=== PATIENT | female | born 1985 | race Hispanic/Latino ===

== ENCOUNTER 2019-08-05 11:26 | Emergency (ER) | payer MEDICAID ==
[2019-08-05 11:55] LABS: BASOPHILS % (AUTO) 0.6 % (0.0-5.0); EOSINOPHILS % (AUTO) 0.7 % (0.0-8.0); HEMATOCRIT 26.1 % (36-48); LYMPHOCYTES % (AUTO) 8.7 % (21.0-51.0); MEAN CORPUSCULAR HEMOGLOBIN 20.3 pg (27.0-33.0); MEAN CORPUSCULAR HGB CONC 31.8 g/dL (32.0-36.0); MEAN CORPUSCULAR VOLUME 63.9 fL (79-99); MONOCYTES % (AUTO) 4.7 % (3.0-13.0); NEUTROPHILS % (AUTO) 85.3 % (40.0-77.0); PLATELET COUNT (AUTO) 192 K/uL (130-400); RED BLOOD CELL COUNT(AUTO) 4.08 MIL/uL (4.00-5.50); RED CELL DISTRIBUTION WIDTH 19.5 % (11.0-15.5); WHITE BLOOD COUNT (AUTO) 8.4 K/uL (4.8-10.8)
[2019-08-05 11:56] LABS: BILIRUBIN,URINE Negative (NEGATIVE); COLOR,URINE Yellow (YELLOW); GLUCOSE, URINE (UA) Negative (NEGATIVE); KETONES,URINE Negative (NEGATIVE); LEUKOCYTE ESTERASE ,URINE Moderate (NEGATIVE); NITRATE,URINE Negative (NEGATIVE); OCCULT BLOOD,URINE Negative (NEGATIVE); PROTEIN,URINE Trace mg/dL (NEGATIVE)
[2019-08-05 11:59] LABS: CARBON DIOXIDE 23 mmol/L (21-32); CHLORIDE 103 mmol/L (101-111); CREATININE 0.7 mg/dL (0.5-1.5); GLOMERULAR FILTR. RATE CALC 101 mL/min (>60); GLUCOSE,RANDOM 96 mg/dL (70-105); POTASSIUM 3.8 mmol/L (3.5-5.1); SODIUM SERUM 137 mmol/L (136-145); UREA NITROGEN, BLOOD 10 mg/dL (7-18)
[2019-08-05 11:59] LABS: HCG,QUAL RESULT POSITIVE (NEGATIVE)
[2019-08-05 12:00] LABS: APPEARANCE,URINE SLIGHTLY CLOUDY (CLEAR)
[2019-08-05 12:04] LABS: ASPARTATE AMINOTRANSFERASE 16 U/L (10-37); BILIRUBIN,TOTAL 0.2 mg/dL (0.2-1.0); TOTAL PROTEIN, SERUM 7.1 g/dL (6.0-8.3)
[2019-08-05 12:07] LABS: ALANINE AMINOTRANSFERASE < 6 U/L (12-78)
[2019-08-05 12:12] LABS: BACTERIA,URINE Moderate /HPF (None Seen); RBC,URINE 0-1 /HPF (0-1)
[2019-08-05 12:13] LABS: MUCUS,URINE Many LPF (None Seen); SQUAMOUS EPITHELIAL CELL,UR 30-50 /HPF (0-2)
[2019-08-05 12:14] LABS: INR 0.94 (0.85-1.15); PARTIAL THROMBOPLASTIN TIME 26.3 SEC (26.3-35.5); PROTHROMBIN TIME 9.9 SEC (9.6-11.6)
[2019-08-05 12:35] LABS: CREATINE KINASE, TOTAL 44 U/L (21-232); HCG,QUANTITATIVE 94819 mIU/mL (0-5)
== END 2019-08-05 13:16 | disposition home or self-care (01) ==
LOC: EDH 11:26
DX: O23.41 Unspecified infection of urinary tract in pregnancy, first trimester (principal); O99.011 Anemia complicating pregnancy, first trimester; Z87.891 Personal history of nicotine dependence; Z3A.11 11 weeks gestation of pregnancy
CPT/HCPCS: 36415; 76801; 80053; 81001; 81025; 82550; 83880; 84484; 84702; 85025; 85610; 85730; 93005

== ENCOUNTER 2024-10-25 07:10 | Emergency (ER) | payer BC, MEDICAID ==
[~2024-10-25] VITALS: Ht 162.6 cm; Wt 90.7 kg
--- NOTE | 2024-10-25 07:32 | ERN ---
ED Note History of Present Illness Stated Complaint: DIZZINESS Chief Complaint: Dizzy/Light Headed Time Seen by MD: 07:23 Dictation: This 39-year-old female presents in the emergency department after having a near syncopal episode associated with a sharp left-sided thoracic pain exacerbated by deep breath that began suddenly shortly prior to arrival. The pain is still there but better now. Onset was accompanied by lightheadedness and sweating which have improved. The patient has never had anything like this before. She felt a little short of breath. She has not had recent fever, cough or congestion, ENT symptoms, gastroesophageal reflux, swelling of the legs or leg pain, nausea, vomiting or diarrhea. She did not take treatment at home. The patient has no underlying medical illnesses. She had her last menstrual period September 28 and is status post three miscarriages and a tubal ligation. She is a former smoker. She does not drink alcohol or use recreational drugs. She lives at home with family. She has no recent travel history and no history immobility or use of hormone therapy. Allergies: Coded Allergies: No Known Allergies (Unverified Allergy, Unknown, 08/05/19) Past Medical History Past Medical History: No Pertinent History Surgical History: BTL Social History: Negative RN Note Reviewed/Agreed w/PFSH: Yes Review of System Dictation All pertinent systems reviewed, negative except as documented in the HPI The ROS is obtained from patient GENERAL/CONSTITUTIONAL: Negative except as documented in HPI. ENT: Negative except as documented in HPI. CARDIOVASCULAR: Negative except as documented in HPI. RESPIRATORY: Negative except as documented in HPI. GASTROINTESTINAL: Negative except as documented in HPI. GENITOURINARY: Negative except as documented in HPI. MUSCULOSKELETAL: Negative except as documented in HPI. SKIN: Negative except as documented in HPI. NEUROLOGIC: Negative except as documented in HPI. Initial Vital Sign VS Vital Signs Date Time Temp Pulse Resp B/P (MAP) Pulse Ox O2 Delivery O2 Flow Rate FiO2 10/25/24 07:15 97.9 78 18 106/68 100 Room Air 0 10/25/24 07:34 21 Physical Exam Dictation VITAL SIGNS: note is made of triage vital signs. Patient has a normal blood pressure and no tachycardia CONSTITUTIONAL: This is a comfortable patient who is awake, alert, and appr opriately interactive. HEAD: Normocephalic, Atraumatic. EYES: Periorbital areas with no swelling, redness, or edema. Lids and lashes are normal. Conjunctival injection is absent. Sclera anicteric. Pupils equal, round, reactive to light. ENT: No nasal discharge noted. Posterior pharynx is without exudate, redness, swelling, masses, or evidence of obstruction. Uvula midline. Mucous membranes moist. NECK: Trachea midline, no masses palpated, and no cervical lymphadenopathy. No swelling. Supple, full range of motion without nuchal rigidity. No vertebral point tenderness. No meningismus. CHEST/AXILLA: Normal chest wall appearance and motion. No tenderness. No crepitus. CV: Normal rate, regular rhythm. No murmur. No edema. Bilateral carotid pulses are normal. Bilateral radial pulses are normal. Extremities are warm and well- perfused RESPIRATORY:Respiratory rate is normal. Bilateral equal breath sounds with good airflow. Normal breath sounds are noted. No rales, rhonchi or wheezes noted. No increased work of breathing, no retractions. ABDOMEN: Inspection normal. No distention is appreciated. Bowel sounds are normal. No mass or organomegaly is appreciated. There is no tenderness. No rebound. No rigidity. No voluntary or involuntary guarding. BACK: Inspection is normal. No midline tenderness is appreciated. The patient appears comfortable when moving. : No CVA tenderness or bladder tenderness. SKIN: Warm, dry, with normal turgor. Capillary refill less than 3 seconds. Normal color.No rash. No cellulitis or abscess. No evidence of acute injury. MS/Extremity: There is no calf tenderness. Baseline range of motion is noted in all 4 extremities. There are no deformities. NEURO: Awake and alert, lucid. Facies symmetric and speech is clear. Motor strength 5/5 in all extremities. Sensory grossly intact. PSYCH: Patient is appropriately attentive and cooperative without evidence of valdes llucination. Results (Laboratory/Radiology) Laboratory/Radiology Laboratory Tests Test 10/25/24 07:30 10/25/24 07:45 10/25/24 10:15 White Blood Count 4.6 K/uL (4.8-10.8) L Red Blood Count 4.83 MIL/uL (4.00-5.50) Hemoglobin 9.9 g/dL (12.0-16.0) L Hematocrit 32.9 % (36-48) L Mean Corpuscular Volume 68.1 fL (79-99) L Mean Corpuscular Hemoglobin 20.5 pg (27.0-33.0) L Mean Corpuscular Hemoglobin Concent 30.1 g/dL (32.0-36.0) L Red Cell Distribution Width 18.6 % (11.0-15.5) H Platelet Count 248 K/uL (130-400) Mean Platelet Volume fL (7.5-10.5) Immature Granulocyte % (Auto) 0.4 % (0-1) Neutrophils (%) (Auto) 70.0 % (40.0-77.0) Lymphocytes (%) (Auto) 22.4 % (21.0-51.0) Monocytes (%) (Auto) 6.1 % (3.0-13.0) Eosinophils (%) (Auto) 0.9 % (0.0-8.0) Basophils (%) (Auto) 0.2 % (0.0-5.0) Neutrophils # (Auto) 3.2 K/uL (1.8-7.7) Lymphocytes # (Auto) 1.0 K/uL (1.0-4.8) Monocytes # (Auto) 0.3 K/uL (0.1-1.0) Eosinophils # (Auto) 0.04 K/uL (0.00-0.70) Basophils # (Auto) 0.01 K/uL (0.00-0.20) Absolute Immature Granulocyte (auto 0.02 K/uL (0-1) Nucleated Red Blood Cells 0.0 % (0.0-0.19) Red Blood Cell Morphology See comments D-Dimer Quantitative (PE/DVT) 317 ng/mL (0-500) Sodium Level 143 mmol/L (136-145) Potassium Level 3.6 mmol/L (3.5-5.1) Chloride Level 108 mmol/L (101-111) Carbon Dioxide Level 27 mmol/L (21-32) Blood Urea Nitrogen 6 mg/dL (7-18) L Creatinine 0.8 mg/dL (0.5-1.0) Glomerular Filtration Rate Calc 95 mL/min (>90) Random Glucose 104 mg/dL (70-105) Total Calcium 8.8 mg/dL (8.5-10.1) Total Bilirubin 0.3 mg/dL (0.2-1.0) Aspartate Amino Transf (AST/SGOT) 23 U/L (10-37) Alanine Aminotransferase (ALT/SGPT) 14 U/L (12-78) Alkaline Phosphatase 77 U/L (50-136) Troponin I High Sensitivity < 4 ng/L (4-50) L Total Protein 7.5 g/dL (6.0-8.3) Albumin 3.4 g/dL (3.5-5.0) L Serum Test, Qualitative NEGATIVE (NEGATIVE) Influenza Type A Antigen Negative For Type A Influenza Type B Antigen Negative For Type B SARS-CoV-2 Antigen (Rapid) PRESUMPTIVE NEGATIVE Urine Color YELLOW (YELLOW) Urine Appearance CLOUDY (CLEAR) H Urine pH 7.0 (5.0-8.0) Urine Specific [place] 1.015 (1.001-1.031) Urine Protein 20 mg/dL (NEGATIVE) H Urine Glucose (UA) NEGATIVE mg/dL (NEGATIVE) Urine Ketones NEGATIVE mg/dL (NEGATIVE) Urine Occult Blood NEGATIVE (NEGATIVE) Urine Nitrate 1+ (NEGATIVE) H Urine Bilirubin NEGATIVE mg/dL (NEGATIVE) Urine Urobilinogen 0.2 mg/dL (0.2-1.0) Urine Leukocyte Esterase 250 Aaron/uL (NEGATIVE) H Urine RBC None /HPF (0-1) Urine WBC 6-10 /HPF (0-1) H Urine Squamous Epithelial Cells MOD /HPF (0-2) Urine Bacteria MANY /HPF (None Seen) Urine HCG, Qualitative NEGATIVE (NEGATIVE) Labs Reviewed?: Yes EKG Comment: Time reviewed: 8:45 a.m. EKG number; 1 Rate and rhythm: Normal sinus rhythm at 71 beats per minute [place]:normal Morphology:Normal MD interval: normal QT interval: normal ST/[place]aves: normal Impression: normal sinus rhythm without STEMI or ectopy Comparison EKG: none EKG INTERPRETATION by Dr. Lorenzo Bajwa X-RAY Comment: Institution : [facility] Accession No. : [id number] [place] : ALLAN MAGANA Creator : Dictator : [employer] Process Control Technician : Partner Manager : TAN SALGUERO Approver2 : Study : CHEST 2VWS Study Date : 10/25/2024 09:20:10 Report Date : [facility] [address] [place] [address] IMAGING REPORT Signed PATIENT: CHINO LEMUS MR#: [id number] : 1985 SEX: F AGE: 39 LOCATION: [facility] ORDER 8 STATUS: REG ER REPORT#: [id number] SERVICE 6 REASON: near syncope sharp L post cp ORDERING PHYSICIAN: LORENZO BAJWA MD PROCEDURE: CXR2VW - CHEST 2VWS Exam Type: CHEST 2VWS Clinical Information: near syncope sharp L post cp Comparison: None Findings: The lungs are clear of infiltrates. The heart is normal in size. The bony and soft tissue structures of the chest are unremarkable. Impression: Clear lungs. DICTATED BY: TAN SALGUERO MD DATE: 10/25/24930 ELECTRONICALLY SIGNED BY: TAN SALGUERO MD DATE: 10/25/24934 ED Course ED Course Orders Procedure Category Date Status Time Cbc With Differential LAB 10/25/24 Complete 07:45 Comprehensive LAB 10/25/24 Complete Metabolic Panel 07:45 Covid19 (Sars Antigen LAB 10/25/24 Complete Rapid) 07:45 Influenza Type A & B, LAB 10/25/24 Complete Rapid 07:45 Urinalysis Profile LAB 10/25/24 Complete 07:51 ,Urine Test LAB 10/25/24 Complete 07:51 D-Dimer LAB 10/25/24 Complete 08:17 Chest 2vws RAD 10/25/24 Resulted 08:17 12 Lead Ekg Tracing- EKG 10/25/24 Logged Technical 08:17 Troponin I High LAB 10/25/24 Complete Sensitivity 08:17 Hydrocodone/Apap PHA 10/25/24 Complete 5/325 (Tama 5/325mg) 09:00 Testing, LAB 10/25/24 Complete Serum Hcg 09:32 Culture Urine RADHA 10/25/24 In Process 10:30 Ketorolac PHA 10/25/24 Complete Tromethamine 30mg/Ml 11:00 Pantoprazole 40mg Inj PHA 10/25/24 Complete (Protonix 40mg Inj 11:00 Current Medications Medications (Trade) Dose Ordered Sig/Eduardo Route PRN Reason Start Time Stop Time Status Last Admin Dose Admin Acetaminophen/ Hydrocodone Bitart (NORco 5/325MG) 1 tab ONCE ONCE PO 10/25/24 09:00 10/25/24 09:01 DC 10/25/24 09:00 Ketorolac Tromethamine (toRADol) 30 mg ONCE ONCE IVP 10/25/24 11:00 10/25/24 11:01 DC Pantoprazole Sodium (PROTonix 40MG INJ) 40 mg ONCE ONCE IVP 10/25/24 11:00 10/25/24 11:01 DC Vital Signs Date Time Temp Pulse Resp B/P (MAP) Pulse Ox O2 Delivery O2 Flow Rate FiO2 10/25/24 10:11 98.1 80 16 100/62 100 Room Air* 0 10/25/24 07:34 98.6 100 16 120/72 98 Room Air* 0 10/25/24 07:15 97.9 78 18 106/68 100 Room Air 0 HEART Score Response (Comments) Value History: Low suspicion (0) 0 EKG: Normal 0 Age: < 45yrs (0) 0 Risk Factors: No known risk factors (0) 0 Initial Troponin: Normal limit (0) 0 HEART Score Risk: Low Risk for MACE (1-3) Total 0 Medical Decision Making MDM INITIAL IMPRESSION Initial history and physical concerning for pulmonary embolus, pneumothorax, gastroesophageal reflux, muscle spasm Patient is very low risk for aortic dissection and does not have risk factors for pulmonary embolus other than history of smoking. Very low risk for cardiac etiology. Exam and vital signs are normal Contributing medical problems: None I have reviewed the triage nursing notes and vital signs. The patient is afebrile with acceptable oxygen saturation, heart rate and blood pressure. Initial plan: Laboratory screening, including a D-dimer, PA and lateral chest x-ray DATA REVIEW I have reviewed additional NN, repeat VS, and monitoring where indicated. Heart rate, blood pressure, and O2 saturation are acceptable. White diagnostic results: White count is 4.6 with no left shift. Hemoglobin is 9 and platelets are normal. A comprehensive metabolic panel, troponin, beta hCG, D-dimer and swabs for flu and COVID are normal. PA and lateral chest x-ray was read by the radiologist as normal. I personally reviewed it for widened mediastinum or abnormal aortic silhouette or other acute finding to explain her symptoms. I concur with radiology reading Other independent historian: none Review of external data: None. ED COURSE Interventions: The patient received pain medication and monitoring in the emergency department. Reassessment: She is improved at the time my re-evaluation. Monitoring remained stable with no tachycardia, hypotension or lows O2 sats DISPOSITION Final diagnostic impression: Pleuritic chest pain of uncertain etiology I discussed my findings, clinical impression and treatment recommendations with the patient. I have reviewed the social factors contributing to the patient's presentation and disposition planning. My final plan for disposition was made based upon clinical findings, response to treatment and discussion with the patient regarding management recommendations Hospitalization is not indicated due to low risk of short term progression, complication, morbidity or mortality related to the current diagnosis At the time of discharge, the vital signs are within acceptable limits. Repeat examination: No significant new changes. Patient has been able to take oral liquids. The discharge treatment plan includes medication for pain and dyspepsia for possible esophageal spasm or esophagitis I have emphasized the importance of returning to the emergency department for recurrent or worsening symptoms Incidental findings discussed: Anemia. The patient was advised to take an [id number] multiple vitamin for women of childbearing age Questions were invited and answered in layman's terms. I have emphasized my follow-up recommendations and reviewed ED return precautions. I have answered any questions in layman's terms. The patient understands that they will have to arrange for out-patient follow-up for recheck of today's condition. The patient is stable and appropriate for discharge from the ED. This dictation was prepared using [employer] voice recognition software. Occasional voice recognition errors may occur. When identified, these errors have been corrected. While every attempt is made to correct errors during dictation, errors may still exist. DX & DISP Disposition: Discharge Decision to Admit Date: Oct 25, 2024 Decision to Admit Time: 12:11 Departure Impression: Primary Impression: Thoracic pain suspect esophageal spasm Additional Impressions: Near syncope, Anemia Condition: Stable Scripts Pantoprazole Sodium (Protonix) 40 Mg Ectab 1 TAB PO DAILY for 15 Days, #15 TAB 0 Refills Prov: LORENZO BAJWA MD 10/25/24 Additional Instructions: Evaluation did not show any signs of problems with the your heart, major blood vessels or lungs. Your pain may have come from a spasm in your esophagus (swallowing tube). The medication I am prescribing is to address inflammation in the esophagus. Return to the emergency department for recurrent fainting episodes, worsening pain, or other worsening. Take an [id number] multiple vitamin for women of childbearing age, containing iron for your anemia. Follow up with your family physician if you are not much better by Sunday Referrals: SELF,REFERRAL (PCP) Time of Disposition: 12:15 LORENZO BAJWA MD Oct 25, 2024 07:32
[2024-10-25 07:54] LABS: BASOPHILS # (AUTO) 0.01 K/uL (0.00-0.20); BASOPHILS % (AUTO) 0.2 % (0.0-5.0); EOSINOPHILS # (AUTO) 0.04 K/uL (0.00-0.70); EOSINOPHILS % (AUTO) 0.9 % (0.0-8.0); HEMATOCRIT 32.9 % (36-48); IMMATURE GRANULOCYTE ABSOLUTE 0.02 K/uL (0-1); LYMPHOCYTES % (AUTO) 22.4 % (21.0-51.0); MEAN CORPUSCULAR HEMOGLOBIN 20.5 pg (27.0-33.0); MEAN CORPUSCULAR HGB CONC 30.1 g/dL (32.0-36.0); MEAN CORPUSCULAR VOLUME 68.1 fL (79-99); MONOCYTES # (AUTO) 0.3 K/uL (0.1-1.0); MONOCYTES % (AUTO) 6.1 % (3.0-13.0); NEUTROPHILS # (AUTO) 3.2 K/uL (1.8-7.7); PLATELET COUNT (AUTO) 248 K/uL (130-400); RED BLOOD CELL COUNT(AUTO) 4.83 MIL/uL (4.00-5.50); RED CELL DISTRIBUTION WIDTH 18.6 % (11.0-15.5); WHITE BLOOD COUNT (AUTO) 4.6 K/uL (4.8-10.8)
[2024-10-25 08:11] LABS: ALBUMIN 3.4 g/dL (3.5-5.0); BILIRUBIN,TOTAL 0.3 mg/dL (0.2-1.0); CREATININE 0.8 mg/dL (0.5-1.0); POTASSIUM 3.6 mmol/L (3.5-5.1); TOTAL PROTEIN, SERUM 7.5 g/dL (6.0-8.3)
[2024-10-25 08:13] LABS: COVID19 (SARS ANTIGEN RAPID) PRESUMPTIVE NEGATIVE (NEGATIVE); INFLUENZA TYPE A Negative For Type A (NEGATIVE); INFLUENZA TYPE B Negative For Type B (NEGATIVE)
[2024-10-25] MEDS: HYDROcodone/APAP 5/325 1 TAB TABLET PO ONE (09:00)
--- NOTE | 2024-10-25 09:35 | HMCIMG ---
Exam Type: CHEST 2VWS Clinical Information: near syncope sharp L post cp Comparison: None Findings: The lungs are clear of infiltrates. The heart is normal in size. The bony and soft tissue structures of the chest are unremarkable. Impression: Clear lungs.
[2024-10-25 10:27] LABS: ADD UA MICROSCOPIC YES
[2024-10-25 10:30] LABS: APPEARANCE,URINE CLOUDY (CLEAR); BACTERIA,URINE MANY /HPF (None Seen); BILIRUBIN,URINE NEGATIVE (NEGATIVE); COLOR,URINE YELLOW (YELLOW); GLUCOSE, URINE (UA) NEGATIVE (NEGATIVE); KETONES,URINE NEGATIVE (NEGATIVE); LEUKOCYTE ESTERASE ,URINE 250 Leu/uL (NEGATIVE); MUCUS,URINE FEW LPF (None Seen); NITRATE,URINE 1+ (NEGATIVE); OCCULT BLOOD,URINE NEGATIVE (NEGATIVE); PROTEIN,URINE 20 mg/dL (NEGATIVE); SQUAMOUS EPITHELIAL CELL,UR MOD /HPF (0-2); UROBILINOGEN,URINE 0.2 mg/dL (0.2-1.0)
[2024-10-25 10:31] LABS: HCG,QUALITATIVE URINE NEGATIVE (NEGATIVE)
[2024-10-25] MEDS: PANTOPrazole 40 MG/VIAL IVP ONE (12:05)
[2024-10-25] MEDS: ketOROlac 30MG VIAL (30MG/ML) IVP ONE (12:06)
[2024-10-25] MEDS ORDERED: PANT40TA55 PO (12:13)
[2024-10-25 12:16] VITALS: BP 100/62; PULSE 80; RESP 16; TEMP 98.1; O2SAT 100
--- NOTE | 2024-10-25 13:39 | EKG ---
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
== END 2024-10-25 12:42 | disposition home or self-care (01) ==
LOC: EDH 07:10
DX: R55 Syncope and collapse (principal); M54.6 Pain in thoracic spine; D64.9 Anemia, unspecified; Z20.822 Contact with and (suspected) exposure to COVID-19; Z98.51 Tubal ligation status
CPT/HCPCS: 99284; 96374; 71046; 96375; 87426; 84484; 80053; 84703; 85025; 85378; 87086; 87804 ×2; 81001; 81025; 36415; 93005; J1885; J2470